=== PATIENT | female | born 1995 | race Caucasian/White ===

== ENCOUNTER 2020-01-28 18:36 | Emergency (ER) | payer OTHER, SELFPAY ==
[2020-01-28] VITALS (14 sets, daily range): BP systolic 115–145; BP diastolic 61–95; PULSE 115–150; RESP 12–28; TEMP 37.3–38.2; O2SAT 98–100
--- NOTE | ~2020-01-28 | XR_ITS ---
EXAMINATION: XR chest 1V portable INDICATION: Fever and headache TECHNIQUE: Portable AP chest at 2141 hours COMPARISON: None available FINDINGS: There are airspace opacities of the left lung base. No pleural effusion or pneumothorax is identified. The cardiomediastinal silhouette is normal. The visualized osseous structures are unremar kable. IMPRESSION: 1. Left basilar airspace opacity, consistent with atelectasis versus pneumonia. Reviewed, dictated and finalized at location A. INSERTER OPERATOR
--- NOTE | ~2020-01-28 | XR_ITS ---
EXAMINATION: XR abdomen/kub 1V INDICATION: Hematuria and bilateral flank pain TECHNIQUE: Supine views of the abdomen were obtained on 2 radiographs. COMPARISON: 12/27/2015 FINDINGS: There is a 3 mm stone of the left kidney lower pole. Known stones of the right kidney are o bscured by bowel contents. The bowel gas pattern is normal. IMPRESSION: 1. Left nephrolithiasis. Reviewed, dictated and finalized at location A. MENTATION ANALYST IMPRESSION: 1. Left nephrolithiasis.
--- NOTE | ~2020-01-28 | CT_ITS ---
EXAMINATION: CT abdomen pelvis wo con DATE: 01/28/2020 23:54 INDICATION: Back pain and hematuria TECHNIQUE: Computed tomography (CT) of the abdomen and pelvis was performed without intravenous contr ast. The dose-length product (DLP) was 908.32 mGy-cm. Automated exposure control and iterative recons truction technique were employed. COMPARISON: 11/13/2015 FINDINGS: There is a focal airspace opacity of the right lower lobe. The heart size is normal. The li vidya, spleen, pancreas, gallbladder, and adrenal glands are normal. There is a 3 mm nonobstructing sto ne of the left kidney lower pole. Nonobstructing stones of the right mid kidney measuring 1 mm and 2 mm. No stones are identified in the ureters or bladder. There is no hydronephrosis or hydroureter. No pathologically enlarged abdominal or pelvic lymph nodes are identified. There is no free intraperito colton gas or evidence of bowel obstruction. The appendix is normal. IMPRESSION: 1. No CT correlate for the patient's symptoms. 2. Bilateral nonobstructing nephrolithiasis. Reviewed, dictated and finalized at location A. RONMENTAL COMPLIANCE OFFICER
[2020-01-28 19:18] LABS: Add Urine Microscopic? YES; Appearance Urine Clear (Clear); Bilirubin Urine Negative (Negative); Color Urine Yellow (Yellow); Glucose Urine UA Negative (Negative); Ketones Urine Negative (Negative); Leukocyte Esterase Ur 2+ LEU/UL (Negative); Mucus Urine Rare /lpf; Nitrate Urine Negative (Negative); Protein Urine Negative (Negative); Specific Grav Ur 1.026 (1.001-1.035); Squamous Epithelial Cell Urine Few /hpf (Few); Urobilinogen Urine Negative mg/dL (<2.0)
[2020-01-28 19:19] LABS: Blood Urine Negative (Negative)
[2020-01-28 19:24] LABS: Anion Gap 12 mmol/L (8-16); Blood Urea Nitrogen 13 mg/dL (9-20); Calcium 9.7 mg/dL (8.4-10.2); Carbon Dioxide 26 mmol/L (22-30); Chloride 103 mmol/L (98-107); Estimated CRCL calculation 102 ml/min; Estimated Glomerular Filt Rate > 60; Glucose 102 mg/dL (75-110); Potassium 3.8 mmol/L (3.4-5.0); Sodium 141 mmol/L (137-145)
[2020-01-28 19:47] LABS: Basophils Percent Auto 0.4 % (0.2-1.2); Eosinophils Percent Auto 0.2 % (0-4.4); Hematocrit 43.7 % (42.0-52.0); Hemoglobin 14.5 g/dL (14.0-18.0); Immature Granulocyte Absolute 0.01 K/mm3 (0.00-0.031); Immature Granulocyte Percent A 0.2 % (0-0.5); Lymphocytes Absolute Auto 0.95 K/mm3 (0.9-3.2); Mean Corpuscular HGB Conc 33.2 g/dl (32-36); Mean Corpuscular Hemoglobin 28.2 pg (26-34); Mean Corpuscular Volume 84.9 fl (80-100); Mean Platelet Volume 10.4 fl (7.4-10.4); Monocytes Absolute Auto 0.6 K/mm3 (0.1-0.6); Monocytes Percent Auto 12.4 % (2.6-8.5); Neutrophils Percent Auto 65.8 % (45.5-73.1); Platelet Count Result 245 k/mm3 (150-375); Red Blood Count 5.15 M/mm3 (4.6-6.20); Red Cell Distribution Width 12.4 % (11.5-14.5); White Blood Count 4.5 K/mm3 (4.5-10.0)
--- NOTE | 2020-01-28 20:23 | PC.NURSE ---
patient reports headache, fever, bodyaches and nausea. was tested for covid today but chose not to wait for results and came to er stating that he felt too bad . patient denies shortness of breath
[2020-01-28 22:04] LABS: Partial Thromboplastin Time 31.9 SECONDS (22.3-36.8); Prothrombin Time 13.9 Seconds (11.1-14.7)
[2020-01-28 22:06] LABS: Lactic Acid Reflex 0.9 mmol/L (0.7-2.1)
[2020-01-28 22:08] LABS: Alanine Aminotransferase 36 U/L (4-35); Albumin Level 4.8 g/dL (3.5-5.1); Alkaline Phosphatase 88 U/L (38-126); Aspartate Amino Transferase 32 U/L (14-36); Bilirubin,Total 0.3 mg/dL (0.2-1.3)
[2020-01-28] MEDS: SODIUM CHLORIDE 0.9% IV 1,000 ML 999 ML IV CONT ×2 (22:08→22:09)
[2020-01-28] MEDS: diphenhydrAMINE HCl INJ 50 MG/ML VIAL 25 MG IV PUSH (22:09)
[2020-01-28] MEDS: METOCLOPRAMIDE HCL INJ 10 MG/2 ML VIAL IV PUSH (22:09)
[2020-01-28 22:10] LABS: D Dimer 0.27 ug/mL (<0.48)
--- NOTE | 2020-01-28 22:18 | ED.GENADULT ---
HPI - General Adult General Chief complaint: Back Pain/Injury Stated complaint: fever, chang, bilat flank pain Time Seen by Provider: 01/28/20 21:03 Source: patient Mode of arrival: ambulatory Limitations: no limitations History of Present Illness HPI narrative: This patient is a 24 year old transgender male who presents for evaluation of fever with back pain and headaches. He states that starting yesterday he developed fever. He states his tmax was 101.2 F. He states he has not been able to get it below 99F. He also reports intermittent headaches but he has chronic headaches. He also has bilateral back pain so he came to get checked for possible kidney stones. He reports nausea but no vomiting, and he states he had one episode of diarrhea today. He denies cough, shortness of breath, sore throat, abdominal pain. He last took medication at noon today . Related Data Allergies Allergy/AdvReac Type Severity Reaction Status Date / Time peppermint Allergy Unknown ORAL Verified 05/02/18 11:40 SORENESS Chocolate AdvReac Unknown HEADACHE Uncoded 05/02/18 11:40 Review of Systems Review of Systems: All systems reviewed & are unremarkable except as noted in HPI and below Constitutional: Constitutional: Reports chills and Reports fever(s) ENT: Denies nasal congestion and Denies sore throat Comments: bilateral ear pain Cardiovascular: Cardiovascular: Denies chest pain Respiratory: Respiratory: Denies cough and Denies dyspnea Gastrointestinal: Gastrointestinal: Denies abdominal pain, Reports diarrhea, Reports nausea and Denies vomiting Genitourinary: Genitourinary: Denies hematuria, Denies dysuria and Reports flank pain Musculoskeletal: Musculoskeletal: Reports back pain Neurologic: Reports headache(s) [facility] Past Medical History Medical History Ikdzka-kt-bhne transgender person Surgical History Surgical History (Updated 01/28/20 @ 22:23 by Carlyn Beauchamp MD) No pertinent past surgical history Social History Social History (Updated 01/28/20 @ 22:23 by Carlyn Beauchamp MD) Smoking status: Never smoker Substance use: never Exam Const: General: no acute distress and alert Orientation/consciousness: patient oriented x3 HENMT: Ears: external ears normal and TM's normal bilaterally Face and sinus: normal facial exam Eyes: EOM: EOMs intact bilaterally Neck: Neck: normal visual inspection Chest: Chest palpation & inspection: normal inspection of the chest Resp: Effort & Inspection: normal respiratory effort, no retractions and no use of accessory muscles Auscultation: clear to auscultation bilaterally Cardio: Rate: tachycardic Rhythm: regular rhythm Heart sounds: no murmurs GI: GI Palp: Yes Soft to palpation, Yes Tenderness to palpation present (GI) (suprapubic) and No Guarding due to palpation present (GI) Auscultation: normal bowel sounds Back/Spine/Pelvis: Back: no CVA tenderness Skin: General skin exam: normal color Rashes: no rashes Neuro: General: patient oriented x3 and moves all extremities Course Reevaluation(s) Reevaluation #1: PAtient states he feels fine. I discussed HR is 150s when he stands. I recommended further observation with admission He is agreeable to more fluids and ibuprofen for his fever to get HR down. He does not want to be admitted. Date: 01/29/20 Time: 00:17 Reevaluation #2: Patient's HR down to 94. He is in no distress. I stressed return precautions and then need to quarantined. Date: 01/29/20 Time: 02:07 Vital Signs Vital signs: Vital Signs Temperature 99.2 F 01/28/20 18:40 Pulse Rate 150 H 01/28/20 18:40 Respiratory Rate 20 01/28/20 18:40 Blood Pressure 145/61 H 01/28/20 18:40 Pulse Oximetry 99 01/28/20 18:40 Temperature 98.5 F 01/29/20 02:23 Pulse Rate 96 01/29/20 02:23 Respiratory Rate 18 01/29/20 02:23 Blood Pressure 117/68 01/29/20 02:23 Pulse Oximetry 99 01/29/20 02:23 Medical Decision Making Vital Si
[2020-01-29] VITALS (8 sets, daily range): BP systolic 106–117; BP diastolic 64–75; PULSE 76–120; RESP 18–27; TEMP 36.9–37.5; O2SAT 98–100
[2020-01-29] MEDS: SODIUM CHLORIDE 0.9% IV 1,000 ML 999 ML IV CONT (00:33)
[2020-01-29] MEDS: IBUPROFEN IV 400 MG in SODIUM CHLORIDE 0.9% IV 100 ML 200 MG IVPB (01:28)
[2020-01-29 20:04] LABS: SARS-CoV-2 RNA PCR Negative
== END 2020-01-29 02:24 | disposition home or self-care (01) ==
PROVIDERS: Emergency Medicine; Emergency Provider General Practice
DX: R50.9 Fever, unspecified (principal); R65.10 Systemic inflammatory response syndrome (SIRS) of non-infectious origin without acute organ dysfunction; Z20.828 Contact with and (suspected) exposure to other viral communicable diseases; R00.0 Tachycardia, unspecified; N20.0 Calculus of kidney; R91.8 Other nonspecific abnormal finding of lung field
CPT/HCPCS: 36415; 71045; 74018; 74176; 80048; 80076; 81001; 83605; 85025; 85380; 85610; 85730; 86140; 87086; 87088; 87635; 87804; 96365; 96367; 96375; 99284; C9803; J0131; J0696; J1200; J2765; J7030; U0003

== ENCOUNTER 2020-01-30 12:24 | Emergency (ER) | payer OTHER, SELFPAY ==
--- NOTE | ~2020-01-30 | CT_ITS ---
EXAMINATION: CT brain wo con DATE: 01/30/2020 13:52 INDICATION: Headache. Fever. TECHNIQUE: Computed tomography (CT) of the head was performed without intravenous contrast. The mA wa s adjusted according to patient size. Iterative reconstruction technique was employed. The dose-lengt h product was 605.33 mGy-cm. COMPARISON: Head CT 11/29/2016 FINDINGS: There is no intracranial hemorrhage, acute infarction, or abnormal intracranial mass lesion . The ventricles are normal in size. The paranasal sinuses are clear. The mastoid air cells are dave l. IMPRESSION: 1. Normal brain. Reviewed, dictated and finalized at location B. CART REPAIRER IMPRESSION: 1. Normal brain.
[2020-01-30 12:27] VITALS: BP 124/60; PULSE 141; RESP 18; TEMP 36.2; O2SAT 98
--- NOTE | 2020-01-30 13:53 | ED.HA ---
HPI - Headache General Chief Complaint: Headache Stated Complaint: head pain Time Seen by Provider: 01/30/20 13:01 Source: patient Mode of arrival: ambulatory Limitations: no limitations History of Present Illness HPI Narrative: This is a 24 year old female that presents to the ER for headaches x 3 days. Associated with fevers. She has been taking Ibuprofen and Tylenol at home with relief. Reports she was seen here 2 days ago and sent home on antibiotics for pneumonia. Denies vision changes, cough, abdominal pain, vomiting, numbness or weakness. Related Data Home Medications Medication Instructions Recorded Confirmed testosterone cypionate 40 mg IM WEEKLY 01/30/20 01/30/20 Allergies Allergy/AdvReac Type Severity Reaction Status Date / Time peppermint Allergy Unknown ORAL Verified 01/30/20 12:51 SORENESS Chocolate AdvReac Unknown HEADACHE Uncoded 01/30/20 12:51 Review of Systems Review of Systems: Narrative: CONSTITUTIONAL: Reports fever EYES: Denies visual changes ENT: Denies rhinorrhea, congestion, sore throat RESPIRATORY: Denies cough GASTROINTESTINAL: Denies abdominal pain, nausea, vomiting GENITOURINARY: Denies dysuria SKIN: Denies rash NEUROLOGIC: Reports headache. Denies numbness, or weakness. All systems reviewed & are unremarkable except as noted in HPI and below PMFSH Past Medical History Medical History Jkiufz-eu-dzmt transgender person Surgical History Surgical History (Updated 01/28/20 @ 22:23 by Carlyn Beauchamp MD) No pertinent past surgical history Social History Social History (Updated 01/28/20 @ 22:23 by Carlyn Beauchamp MD) Smoking status: Never smoker Substance use: never Gender identity (if verbalized by the patient): Male Exam Narrative: Exam Narrative: GENERAL: Well-appearing, well-nourished, and in no acute distress. HEAD: Normocephalic, atraumatic. EYES: PERRLA and EOMI. ENT: Nares clear, no rhinorrhea or epistaxis. Mucous membranes moist. Oropharynx without tonsillar hypertrophy exudate or other lesions. Bilateral TMs pearly hinkle non-bulging NECK: Supple. No adenopathy or masses. CHEST: Clear to auscultation. No respiratory distress. No wheezes rales or rhonchi HEART: Regular rate and rhythm. No murmur heard. Normal peripheral pulses. EXTREMITIES: Normal range of motion. No edema. Strength equal in bilateral upper and lower extremities (5/5) SKIN: Warm, dry, no rash. NEURO: No focal deficits. Alert and oriented x3. Cranial nerves II through XII grossly intact. Normal [id number]-[id number]. Negative Kernig and Brudzinski PSYCH: Normal mood and affect Course Vital Signs Vital signs: Vital Signs Temperature 97.2 F L 01/30/20 12:27 Pulse Rate 141 H 01/30/20 12:27 Respiratory Rate 18 01/30/20 12:27 Blood Pressure 124/60 01/30/20 12:27 Pulse Oximetry 98 01/30/20 12:27 Temperature 97.2 F L 01/30/20 12:27 Pulse Rate 104 H 01/30/20 15:49 Respiratory Rate 15 01/30/20 15:49 Blood Pressure 126/78 01/30/20 15:49 Pulse Oximetry 97 01/30/20 15:49 MDM - Headache MDM Narrative Medical decision making narrative: Patient presents the emergency department for intermittent headaches. Was also reporting fever. Was seen here 2 days ago and started on an antibiotic for pneumonia. She is afebrile and nontoxic-appearing. She is neurologically intact. Tachycardic upon arrival, this normalized with IV fluid administration. CBC consistent with likely a viral infection. Also shows mild hemoconcentration. Patient hydrated in the ED. Metabolic panel without concerning findings. Inflammatory markers are not elevated. Lactic acid is normal. CT scan of the brain is normal. Patient was updated on case findings. She was instructed on continued symptomatic management. She was instructed to finish her antibiotics as prescribed. She did have a negative Covid and influenza swab 2 days ago. She is to follow-up with primary care doctor. She was given w
[2020-01-30] MEDS: METOCLOPRAMIDE HCL INJ 10 MG/2 ML VIAL IV PUSH (14:05)
[2020-01-30] MEDS: SODIUM CHLORIDE 0.9% IV 1,000 ML 999 ML IV CONT (14:05)
[2020-01-30] MEDS: KETOROLAC 30 MG/ML VIAL (*BKC) IV PUSH (14:06)
[2020-01-30] MEDS: diphenhydrAMINE HCl INJ 50 MG/ML VIAL 25 MG IV PUSH (14:07)
[2020-01-30 14:13] LABS: Hematocrit 44.6 % (37.0-47.0); Hemoglobin 15.1 g/dL (12.0-15.0); Immature Granulocyte Absolute 0.01 K/mm3 (0.00-0.031); Immature Granulocyte Percent A 0.3 % (0-0.5); Lymphocytes Absolute Auto 0.61 K/mm3 (0.9-3.2); Lymphocytes Percent Auto 18.3 % (18.3-44.2); Mean Corpuscular HGB Conc 33.9 g/dl (32-36); Mean Corpuscular Hemoglobin 28.9 pg (26-34); Mean Corpuscular Volume 85.4 fl (80-100); Mean Platelet Volume 9.9 fl (7.4-10.4); Monocytes Absolute Auto 0.3 K/mm3 (0.1-0.6); Neutrophils Absolute Auto 2.4 K/mm3 (1.3-6.7); Neutrophils Percent Auto 72.4 % (45.5-73.1); Platelet Count Result 193 k/mm3 (150-375); Red Blood Count 5.22 M/mm3 (4.2-5.4); Red Cell Distribution Width 12.4 % (11.5-14.5); White Blood Count 3.3 K/mm3 (4.5-10.0)
[2020-01-30 14:28] LABS: Alanine Aminotransferase 32 U/L (4-35); Albumin Level 4.7 g/dL (3.5-5.1); Alkaline Phosphatase 75 U/L (38-126); Anion Gap 11 mmol/L (8-16); Aspartate Amino Transferase 34 U/L (14-36); Bilirubin,Total 0.3 mg/dL (0.2-1.3); Blood Urea Nitrogen 10 mg/dL (7-17); CRP 1.8 mg/dL (<1.0); Calcium 9.3 mg/dL (8.4-10.2); Carbon Dioxide 23 mmol/L (22-30); Chloride 103 mmol/L (98-107); Estimated CRCL calculation 91 ml/min; Estimated Glomerular Filt Rate > 60; Glucose 115 mg/dL (65-105); Sodium 137 mmol/L (137-145)
[2020-01-30 14:49] LABS: Erythrocyte Sedimentation Rate 6 mm/hr (0-20)
[2020-01-30 15:02] LABS: Lactic Acid Reflex 0.7 mmol/L (0.7-2.1)
[2020-01-30 15:49] VITALS: BP 126/78; PULSE 104; RESP 15; O2SAT 97
== END 2020-01-30 16:22 | disposition home or self-care (01) ==
PROVIDERS: Physician Assistant; Emergency Provider Emergency Medicine
DX: G44.209 Tension-type headache, unspecified, not intractable (principal); Z87.890 Personal history of sex reassignment
CPT/HCPCS: 36415; 70450; 80053; 83605; 85025; 85652; 86140; 96361; 96374; 96375; 99284; J1200; J1885; J2765; J7030

== ENCOUNTER 2023-08-09 13:50 | Outpatient (CLI) | payer OTHER, SELFPAY | END 2023-08-09 13:51 | disposition home or self-care (01) | LOC: ANHAUDIO 13:50 | PROVIDERS: Visit Provider Nurse Practitioner Family | DX: H91.90 Unspecified hearing loss, unspecified ear (principal) | CPT/HCPCS: 92552; 92556; 92567 ==

== ENCOUNTER 2024-05-13 11:03 | Outpatient (CLI) | payer OTHER, SELFPAY ==
--- NOTE | ~2024-05-13 | XR_ITS ---
EXAMINATION: XR chest 2V 05/13/2024 11:29 INDICATION: Chest tightness with cough PROCEDURE: 2 view chest COMPARISON: 01/28/2020 FINDINGS: The lungs are clear. The cardiomediastinal silhouette is within normal limits. There are no pleural effusions. There is no pneumothorax suspected. IMPRESSION: 1: NO ACUTE CARDIOPULMONARY DISEASE. Reviewed, dictated and finalized at location A.
--- OUTSIDE RECORDS SUMMARY | 2024-05-13 13:14 | XMS_ITS | Clinical Summary ---
Author Organization [facility] [facility] Address [address] [place] [id number] Care Team Providers Care Pigment Supplier Name Role Phone Unavailable Primary Care Provider Unavailabl e Allergies Active Allergy Reactions Criticality Noted Date Comments Porter Headache High 09/07/2010 Medications albuterol sulfate HFA 90 mcg/actuation aerosol inhalerIndication s:Mild intermittent asthma without complication Take 2 Puffs by inhalation every 6 hours as needed for Shortness of Breath. 8.5 Gram 3 Active naproxen (NAPROSYN) 375 mg tablet Take 2 Tablets by mouth 1 time daily as needed for Pain (migraine). 4 Active testosterone (ANDROGEL) 20.25 mg/1.25 gram (1.62 %) Gel in Metered-dose Pump Apply 40.5 mg to affected area daily. 4 Active Active Problems Problem Noted Date Diagnosed Date Migraine without status migrainosus, not intract able 11/21/2022 Cgatzn-lq-dkod transgender person 07/08/2019 Asthma 03/19/2018 Arnold-Chiari malformation, type I 03/07/2012 Encounters Date Type Department Care Team Description 05/07/2024 External Device Data [facility] ABSTRACTION Provider, Abstract 04/26/2024 External Device Data [facility] ABSTRACTION Provider, Abstract 04/25/2024 External Device Data [facility] ABSTRACTION Provider, Abstract 04/22/2024 External Device Data [facility] ABSTRACTION Provider, Abstract 04/15/2024 External Device Data [facility] ABSTRACTION Provider, Abstract 03/25/2024 External Device Data [facility] ABSTRACTION Provider, Abstract 03/12/2024 External Device Data [facility] ABSTRACTION Provider, Abstract 03/11/2024 External Device Data [facility] ABSTRACTION Provider, Abstract 03/04/2024 External Device Data [facility] ABSTRACTION Provider, Abstract from Last 3 Months Immunizations Immunization Administration Dates Next Due (ADACEL/BOOSTRIX)(10 YR UP) TDAP VACCINE, 0.5ML, IM 09/01/2020 (PFIZER)(12 YR UP) COVID-19 VACCINE - EMERGENCY USE AUTHORIZATION, MRNA, [id number](PF) 30 MCG/0.3 ML IM SUSP 05/25/2020,04/30/2020 INFLUENZA VACCINE QUADRIVALENT 6 MOS UP IM 12/24 INFLUENZA VACCINE QUADRIVALENT 6 MOS UP PF IM Family History Medical History Relation Name Comments No Known Problems Brother Hypertension Father No Known Problems Half-Sister Diabetes Maternal Grandfather No Known Problems Maternal Grandmother No Known Problems Mother Hypertension Paternal Grandfather Cancer Paternal Grandmother Relation Name Status Comments Brother Alive Father Alive Half-Sister Alive Maternal Grandfather Maternal Grandmother Alive Mother Alive Paternal Grandfather Alive Paternal Grandmother Social History Tobacco Use Types Packs/Day Years Used Date Smoking Tobacco: Never Smokeless Tobacco: Never Tobacco Cessation:Counseling Given: Not Answered Alcohol Use Standard Drinks/Week Comments Not Currently 0 (1 standard drink = 0.6 oz pur e alcohol) occasionally Comments No Sex and Gender Information Value Date Recorded Sex Assigned at Female 09/07/2022 3:44 PM CDT Legal Sex Male 7:52 AM CDT Gender Identity Transgender Male 09/07/2022 3:44 PM CDT Sexual Orientation Not on file Last Filed Vital Signs Vital Sign Reading Time Taken Comments Blood Pressure 110/72 10/10/2023 7:52 AM CDT Pulse 89 10/10/2023 7:52 AM CDT Temperature 36.2 C (97.2 F) 10/10/2023 7:52 AM CDT Respiratory Rate 18 10/10/2023 7:52 AM CDT Oxygen Saturation 98% 10/10/2023 7:52 AM CDT Inhaled Oxygen Concentration - - Weight 103.4 kg (228 lb) 10/10/2023 7:52 AM CDT Height 165.1 cm (5' 5 ) 10/10/2023 7:52 AM CDT Body Mass Index 37.94 10/10/2023 7:52 AM CDT Plan of Treatment Health Maintenance Due Date Last Done Comments PNEUMOCOCCAL VACCINE 0-49 YEARS (1 of 2 - PCV) 2002 HEPATITIS B VACCINES (1 of 3 - 19+ 3-dose series) 12/05/2015 CERVICAL CANCER SCREENING 2017 PAP SMEAR 2017 PAP SMEAR 2017 INFLUENZA VACCINE (#1) 2023 , 12/24/2017 COVID-19 Vaccine (3 - 2023-2 5 season) 2023 05/25/2020, 04/30/2020 DTAP/TDAP/TD VACCINES (2 - T d or Tdap) 09/01/2030 09/01/2020 HPV VACCINES Aged Out No longer eligi ble based on patient's age to complete this topic Insurance [employer]ANCE OPEN ACCESS * Guarantor: [employer]) Account Type Relation to Patient Date of Phone Billing Address Corporate Employer ATTN: GABRIEL REYES [phone] [address] [employer]LEGIANCE OPEN ACCESS * Guarantor: [employer] Account Type Relation to Patient Date of Phone Billing Address Corporate Employer ATTN: GABRIEL REYES [address] [place] [id number] Care Teams Pigment Supplier Relationship Specialty Start Date End Date Jackie Reese FNP- serves as PCP Nurse Practitioner Telegraphic Typewriter Repairer 10/10/23
--- OUTSIDE RECORDS SUMMARY | 2024-05-13 13:14 | XMS_ITS | Clinical Summary ---
Author Organization [facility] Address [address] [place] [phone] Care Team Providers Care Quantitative Consultant Name Role Phone Venu Diaz MD Primary Care Provider [phone] No, Physician Unavailable Allergies Active Allergy Reactions Criticality Noted Date Comments Chocolate Headache Low 07/08/2019 Medications albuterol HFA (PROVENTIL HFA,VENTOLIN HFA,PROAIR HFA) 90 mcg/actuation inhaler May take two puffs prior to trigger activity and every 6 hours as needed. 12/25/19 18 Active syringe with needle (Tuberculin Syringe) 1 mL 25 gauge x 5/8 syringeIndications :Bdvatn-bq-oqlu transgender person Use to inject testosterone weeky 13 Syringe 1 07/09/19 20 Active Additional Information Patient not taking.Reported on 02/27/2024 cholecalciferol (Vitamin D3) 2000 unit capsuleIndications :Vitamin D deficiency Take 1 capsule (2,000 Units total) by mouth daily 90 capsule 1 08/25/19 21 Active Additional Information Patient not taking.Reported on 02/27/2024 testosterone cypionate (DEPO-TESTOTERONE) 200 mg/mL injectionIndicatio ns:Htaycz-sg-azxu transgender person Inject 50 mg (0.25 ml) sub Q every 7 days 4 mL 4 09/25/19 21 Active Additional Information Patient not taking.Reported on 02/27/2024 testosterone 20.25 mg/1.25 gram (1.62 %) gel in metered-dose pump PLACE 2 PUMP ON THE SKIN ONCE DAILY IN THE MORNING. 02/14/20 24 Active naproxen (NAPROSYN) 375 mg tablet Take 1 tablet (375 mg total) by mouth Active ondansetron ODT (ZOFRAN-ODT) 4 mg disintegrating tabletIndications: Nausea Take 1 tablet (4 mg total) by mouth every 6 (six) hours as needed for nausea or vomiting 10 tablet 02/26/19 25 Active Active Problems Problem Noted Date Diagnosed Date Fmuzsr-jr-rszy transgender person 07/08/2019 Amenorrhea 06/01/2015 Encounter for contraceptive management 4 Arnold-Chiari malformation, type I 03/07/2012 Encounters Date Type Department Care Team Description 02/27/2024 5:27 PM INSOLE BOTTOM FILLER - 02/27/2024 11:59 PM INSOLE BOTTOM FILLER Hospital Encounter [address] [address] Abdominal pain Discharge Disposition: Discharge to home or self care 02/27/2024 5:15 PM INSOLE BOTTOM FILLER Office Visit [facility] at [address] [phone] Ruth Wolf NP Abdominal pain (Primary Dx); Nausea from Last 3 Months Immunizations Immunization Administration Dates Next Due Pfizer SARS-CoV-2 Monovalent Vaccination (12+ Yrs) PURPLE 05/25/2020,04/30/2020 Social History Tobacco Use Types Packs/Day Years Used Date Smoking Tobacco: Former E-cigarettes Smokeless Tobacco: Never Tobacco Cessation:Counseling Given: Not Answered PHQ-2 Answer Date Recorded PHQ-2 TOTAL SCORE 1 08/24/2020 Comments Unknown Sex and Gender Information Value Date Recorded Sex Assigned at Female 08/12/2018 3:28 PM CDT Legal Sex Male 6:19 PM CDT Gender Identity Transgender Male 08/12/2018 3:28 PM CDT Sexual Orientation Not on file Obstetrics History Last Filed Vital Signs Vital Sign Reading Time Taken Comments Blood Pressure 128/85 02/27/2024 5:20 PM INSOLE BOTTOM FILLER Pulse 106 02/27/2024 5:20 PM INSOLE BOTTOM FILLER Temperature 36.7 C (98.1 F) 02/27/2024 5:20 PM INSOLE BOTTOM FILLER Respiratory Rate 18 02/27/2024 5:20 PM INSOLE BOTTOM FILLER Oxygen Saturation 99% 02/27/2024 5:20 PM INSOLE BOTTOM FILLER Inhaled Oxygen Concentration - - Weight 106 kg (233 lb 9.6 oz) 02/27/2024 5:20 PM INSOLE BOTTOM FILLER Height 164.8 cm (5' 4.88 ) 02/27/2024 5:20 PM CS T Body Mass Index 39.01 02/27/2024 5:20 PM INSOLE BOTTOM FILLER Plan of Treatment Health Maintenance Due Date Last Done Comments Cervical Cancer Screening 1996 Hepatitis C Screening 1996 Varicella Vaccines (1 of 2 - 13+ 2-dose series) 2009 Hepatitis B Screening 2014 Pneumococcal vaccine <65 (1 of 2 - PCV) 12/05/2015 Regular Well Visit/Exam 18-64 04/23/2020 04/24/2019 Depression Screening 08/24/2021 08/24/2020, 08/25/19 21 Covid-19 Vaccine (3 - season) 2023 05/25/2020, 04/30/2020 Influenza Vaccine (#1) 2023 , 12/24/2017, 11/30/2016, Additional history exists DTaP/Tdap/Td Vaccine (3 - Td or Tdap) 09/01/2030 09/01/2020, 09/05/2007 HPV Vaccines Aged Out No longer eligi ble based on patient's age to complete this topic Procedures Procedure Name Priority Date/Time Associated Diagnosis Comments URINE CULTURE Routine 02/27/2024 5:44 PM INSOLE BOTTOM FILLER Abdominal pain POCT URINALYSIS DIPSTICK Routine 02/27/2024 5:43 PM INSOLE BOTTOM FILLER Abdominal pain from Last 3 Months Results * Urine culture Urine, clean voided (02/27/2024 5:44 PM INSOLE BOTTOM FILLER) Report Final Report: Less than 100,000 colonies/mL (clinically insignificant growth based on current clinical standards) Comment:Testing performed by : [facility], [address] [facility], [place]., [address] Organism (CLINICALLY INSIGNIFICANT GROWTH CERNER Urine, clean voided 02/27/2024 5:44 PM INSOLE BOTTOM FILLER 02/28/2024 12:26 AM INSOLE BOTTOM FILLER Narrative VALENCIA - 02/29/2024 11:30 AM INSOLE BOTTOM FILLER Testing performed by [facility] Microbiology Laboratory ([phone]) Ruth Wolf NP LAB MICROBIOLOGY - GENERAL ORD ERABLES Final Result [facility]A [address] Department [place] [address] * POCT urinalysis dipstick (02/27/2024 5:43 PM INSOLE BOTTOM FILLER) Color, Urine, POC Yellow Clarity, ur, POC Clear Clear Glucose, ur, POC Negative Negative MG/DL Bilirubin, ur, POC Negative Negative, Small, Moderate, Large Ketones, ur, POC Negative Negative Specific [place], POC 1.025 1.003 - 1.030 Blood, ur, POC Negative Negative pH, ur, POC 7.5 5.0 - 8.0 Protein, ur, POC Negative Negative Urobilinogen, urine, POC 0.2 0.2 - 1.0 mg/dL Nitrite, ur, POC Negative Negative Leukocytes, ur, POC Negative Negative Lot Number [id number] Urine 02/27/2024 5:43 PM INSOLE BOTTOM FILLER Ruth Wolf NP POINT OF CARE TEST ORDERABLES Final Result from Last 3 Months Insurance [facility] H[facility]/PPO Address: [address] [id number] [place] [address] [facility] H[facility]/PPO Address: [address] [id number] [place] [address] [id number] [place] [address] [facility] Member Subscriber Plan / Payer (Ef fective 2021-Present) Name:Karla Britton Relation to Subscriber:Self Name:Karla Britton Payer ID:[id number] ([facility]) Type:CIGNA HMO/PPO Address: [address] [facility] H[facility]/PPO Address: [address] [address] [place] [address] Care Teams Quantitative Consultant Relationship Specialty Start Date End Date Venu Diaz MD [address] [place] [address] PCP - General Internal Medicine 2/14/20 No, Physician 04/04/19
--- OUTSIDE RECORDS SUMMARY | 2024-05-13 13:14 | XMS_ITS | Referral Summary ---
Author Organization [facility] Address [address] [place] [id number] Care Team Providers Care Medical Professionals Name Role Phone Venu Diaz MD Primary Care Provider [phone]- [phone] No, Physician Unavailable Encounters Date Type Department Care Team Description 02/27/2024 5:[address] REPORTER - 02/27/2024 11:[address] REPORTER Hospital Encounter [address] [phone] Abdominal pain Discharge Disposition: Discharge to home or self care 02/27/2024 5:[address] REPORTER Office Visit [facility] at [address] [id number] Ruth Wolf NP Abdominal pain (Primary Dx); Nausea from Last 3 Months Allergies Active Allergy Reactions Criticality Noted Date Comments Chocolate Headache Low 07/08/2019 Medications albuterol HFA (PROVENTIL HFA,VENTOLIN HFA,PROAIR HFA) 90 mcg/actuation inhaler May take two puffs prior to trigger activity and every 6 hours as needed. 12/25/19 18 Active syringe with needle (Tuberculin Syringe) 1 mL 25 gauge x 5/8 syringeIndications :Xrdctp-es-nhdg transgender person Use to inject testosterone weeky 13 Syringe 1 07/09/19 20 Active Additional Information Patient not taking.Reported on 02/27/2024 cholecalciferol (Vitamin D3) 2000 unit capsuleIndications :Vitamin D deficiency Take 1 capsule (2,000 Units total) by mouth daily 90 capsule 1 08/25/19 21 Active Additional Information Patient not taking.Reported on 02/27/2024 testosterone cypionate (DEPO-TESTOTERONE) 200 mg/mL injectionIndicatio ns:Nowxxi-vc-wxun transgender person Inject 50 mg (0.25 ml) [...] Active Problems Problem Noted Date Diagnosed Date Rpvxvi-yc-vmii transgender person 07/08/2019 Amenorrhea 06/01/2015 Encounter for contraceptive management 4 Arnold-Chiari malformation, type I 03/07/2012 Immunizations Immunization Administration Dates Next Due Pfizer [...] Comments Blood Pressure 128/85 02/27/2024 5:[address] REPORTER Pulse 106 02/27/2024 5:[address] REPORTER Temperature 36.7 C (98.1 F) 02/27/2024 5:[address] REPORTER Respiratory Rate 18 02/27/2024 5:[address] REPORTER Oxygen Saturation 99% 02/27/2024 5:[address] REPORTER Inhaled Oxygen Concentration - - Weight 106 kg (233 lb 9.6 oz) 02/27/2024 5:[address] REPORTER Height 164.8 cm (5' 4.88 ) 02/27/2024 5:20 PM CS T Body Mass Index 39.01 02/27/2024 5:[address] REPORTER Plan of Treatment Not on file Procedures Procedure Name Priority Date/Time Associated Diagnosis Comments URINE CULTURE Routine 02/27/2024 5:[address] REPORTER Abdominal pain POCT URINALYSIS DIPSTICK Routine 02/27/2024 5:[address] REPORTER Abdominal pain from Last 3 Months Results * Urine culture Urine, clean voided (02/27/2024 5:[address] REPORTER) Report Final Report: Less than 100,000 colonies/mL (clinically insignificant growth based on current clinical standards) Comment:Testing performed by : [facility], [address] [place]., [address] Organism (CLINICALLY INSIGNIFICANT GROWTH [place] Urine, clean voided 02/27/2024 5:[address] REPORTER 02/28/2024 12:[address] REPORTER Narrative [place] - 02/29/2024 11:[address] REPORTER Testing performed by [facility] ([phone]) us Ruth Wolf NP LAB MICROBIOLOGY - GENERAL ORD ERABLES Final Result [facility] [id number] [address] Department [place] [address] * POCT urinalysis dipstick (02/27/2024 5:[address] REPORTER) Color, Urine, POC Yellow Clarity, ur, POC Clear Clear Glucose, ur, POC Negative Negative MG/DL Bilirubin, ur, POC Negative Negative, Small, Moderate, Large Ketones, ur, POC Negative Negative Specific Caret, POC 1.025 1.003 - 1.030 Blood, ur, POC Negative Negative pH, ur, POC 7.5 5.0 - 8.0 Protein, ur, POC Negative Negative Urobilinogen, urine, POC 0.2 0.2 - 1.0 mg/dL Nitrite, ur, POC Negative Negative Leukocytes, ur, POC Negative Negative Lot Number [id number] Urine 02/27/2024 5:[address] REPORTER Ruth Wolf NP POINT OF CARE TEST ORDERABLES Final Result from Last 3 Months Insurance Member Subscriber Plan / Payer (Ef fective 2017-Present) Name:Karla Britton Relation to Subscriber:Self Name:Karla Britton Payer ID:[id number] (NAIC) Type:[place] [employer] Address: [address] [employer] [id number] [employer] [facility] Care Teams Medical Professionals Relationship Specialty Start Date End Date Venu Diaz MD [address] [place] [address] PCP - General Internal Medicine 04/04/19 No, Physician 04/04/19
== END 2024-05-13 11:04 | disposition home or self-care (01) ==
PROVIDERS: PCP Nurse Practitioner Family; Visit Provider Nurse Practitioner Family
DX: R05.9 Cough, unspecified (principal); R06.02 Shortness of breath
CPT/HCPCS: 71046